=== PATIENT | female | born 1935 | race Caucasian/White ===

== ENCOUNTER → 2017-01-26 | Outpatient (CLI) | payer OTHER ==
[~2017-01-26] MED LIST: AGG PO; ATOR80TA PO; CALCTAB5 PO; CLON1TAB3 PO; CYAN10005 PO; DICL1GEL12 TOP; GLC850 PO; METO25TA3 PO; NTRGSL/4 UT; TRAM-10 PO
[2017-01-26 17:45] LABS: CHOLESTEROL/HDL RATIO 2.5
== END | disposition home or self-care (01) ==
LOC: C.LABPBG 11:39
PROVIDERS: ATTEND Internal Medicine Cardiovascular Disease
DX: E78.5 Hyperlipidemia, unspecified (principal)

== ENCOUNTER → 2017-02-27 | Outpatient (CLI) | payer OTHER ==
[2017-02-27 13:22] LABS: ESTIMATED AVERAGE GLUCOSE 154 mg/dl; HA1C FLAG Normal (Normal)
[2017-02-27 13:47] LABS: ALT/SGPT 32 U/L (12-78); BLOOD UREA NITROGEN 20 mg/dl (7-18); BUN/CREATININE RATIO 18.3 (10-20); CALCIUM 9.9 mg/dl (8.5-10.1); CARBON DIOXIDE 26 mmol/L (21-32); CHLORIDE 104 mmol/L (98-107); GLUCOSE 131 mg/dl (70-99); POTASSIUM 3.7 mmol/L (3.5-5.1); SODIUM 139 mmol/L (136-145)
[2017-02-27 13:57] LABS: ALB/GLOB RATIO 0.8 (0.9-2); ALKALINE PHOSPHATASE 86 U/L (45-117); AST/SGOT 23 U/L (15-37)
--- NOTE | 2017-03-06 07:19 | CODING QUERY MEDICAL NECESSITY ---
CQSUPPORTING DIAGNOSIS NEEDED A supporting diagnosis is required for the test/procedure performed on this patient in order for us to be reimbursed by the patient's insurance. Please provide a supporting diagnosis for the following test/procedure listed below next to the test name along with your signature. *If there is no additional diagnosis for this patient that would support the following test/procedure please document that below next to the test/procedure. Test(s)/Procedure(s) that require a supporting diagnosis: DOS 02/27/17 GLYCATED HEMOGLOBIN TEST Provider Signature: Date: Thank you Alyson Self Health Information Management Once completed, please kindly fax back to [phone] For questions please call [phone]
== END | disposition home or self-care (01) ==
LOC: C.LABPBG 09:08
PROVIDERS: ATTEND Internal Medicine
DX: E78.5 Hyperlipidemia, unspecified (principal); E11.9 Type 2 diabetes mellitus without complications

== ENCOUNTER → 2017-07-27 | Outpatient (CLI) | payer OTHER ==
--- NOTE | 2017-07-28 12:34 | MAMMOGRAPHY REPORT ---
BILATERAL DIGITAL SCREENING MAMMOGRAM WITH CAD: 07/27/2017 CLINICAL HISTORY: Routine screening. TECHNIQUE: Current study was also evaluated with a Computer Aided Detection (CAD) system. Bilateral CC and MLO views were obtained. COMPARISON: Comparison is made to exams dated: 06/23/2016 mammogram, 06/22/2015 mammogram, 06/20/2014 mamm ogram, 06/19/2013 mammogram, 06/18/2012 mammogram, and 06/15/2011 mammogram - [facility] er. BREAST COMPOSITION: The tissue of both breasts is heterogeneously dense, which may obscure small mas ses. FINDINGS: No suspicious masses, calcifications, or areas of architectural distortion are noted in ei ther breast. There has been no significant interval change compared to prior exams. Scattered bilater al benign-appearing calcifications are not significantly changed. IMPRESSION: ACR BI-RADS CATEGORY 2: BENIGN There is no mammographic evidence of malignancy. A 1 year screening mammogram is recommended. The pa tient will receive written notification of the results. Approximately 10% of breast cancers are not detected with mammography. A negative mammographic report should not delay biopsy if a clinically suggestive mass is present. Carla Rodriguez M.D. ah/:07/27/2017 16:55:37 Manager Academic: Kecia MURRAY(R)(M), [facility] letter sent: Normal 1/2 BI-RADS Code: ACR BI-RADS Category 2: Benign
== END | disposition home or self-care (01) ==
LOC: C.MAMM 16:18
PROVIDERS: ATTEND Internal Medicine
DX: Z12.31 Encounter for screening mammogram for malignant neoplasm of breast (principal)

== ENCOUNTER → 2017-09-04 | Outpatient (CLI) | payer OTHER ==
[2017-09-04 17:53] LABS: ALT/SGPT 32 U/L (12-78); AST/SGOT 21 U/L (15-37); BLOOD UREA NITROGEN 17 mg/dl (7-18); BUN/CREATININE RATIO 16.9 (10-20); CALCIUM 9.5 mg/dl (8.5-10.1); CARBON DIOXIDE 27 mmol/L (21-32); CHLORIDE 107 mmol/L (98-107); CREATININE 1.01 mg/dl (0.60-1.20); GLUCOSE 135 mg/dl (70-99); SODIUM 142 mmol/L (136-145)
[2017-09-04 17:55] LABS: ALB/GLOB RATIO 0.8 (0.9-2); ALKALINE PHOSPHATASE 75 U/L (45-117)
[2017-09-05 07:24] LABS: ESTIMATED AVERAGE GLUCOSE 143 mg/dl; HA1C FLAG Normal (Normal)
== END | disposition home or self-care (01) ==
LOC: C.LABPBG 13:57
PROVIDERS: ATTEND Internal Medicine
DX: E11.9 Type 2 diabetes mellitus without complications (principal); I25.10 Atherosclerotic heart disease of native coronary artery without angina pectoris; I10 Essential (primary) hypertension; E78.5 Hyperlipidemia, unspecified

== ENCOUNTER → 2017-10-20 | Outpatient (CLI) | payer OTHER ==
[2017-10-20 17:41] LABS: URINE APPEARANCE CLOUDY (CLEAR); URINE BILIRUBIN NEG (NEG); URINE COLOR YELLOW; URINE NITRITE POS (NEG); URINE SPECIFIC GRAVITY 1.026 (1.000-1.030); UROBILINOGEN NEG (NEG); ZZUR CULT IF INDIC CLEAN CATCH YES
[2017-10-20 17:42] LABS: MANUAL MICROSCOPIC REQUIRED? NO; REVIEW REQ? NO
== END | disposition home or self-care (01) ==
LOC: C.LABPBG 14:14
PROVIDERS: ATTEND Internal Medicine
DX: R39.9 Unspecified symptoms and signs involving the genitourinary system (principal)

== ENCOUNTER → 2018-01-23 | Outpatient (CLI) | payer OTHER ==
[2018-01-23 17:49] LABS: BASO % 0.4 %; BASO ABS # 0.03 K/uL (0-0.2); EOS % 3.5 %; EOS ABS # 0.25 K/uL (0-0.5); HEMATOCRIT 45.5 % (37-47); HEMOGLOBIN 14.9 g/dL (12.0-16.0); LYMPH % 35.5 %; LYMPH ABS # 2.51 K/uL (1.2-3.4); MEAN CELL VOLUME 97.2 fL (80-100); MEAN CORPUSCULAR HEMOGLOBIN 31.8 pg (25-34); MEAN CORPUSCULAR HGB CONC 32.7 g/dl (32-36); MEAN PLATELET VOLUME 10.5 fL (7.4-10.4); MONO % 7.1 %; NEUT % 53.5 %; NEUT ABS # 3.79 K/uL (1.4-6.5); PLATELET COUNT 269 K/uL (130-400); RED CELL DISTRIBUTION WIDTH SD 46.1 fL (36.4-46.3); WHITE BLOOD COUNT 7.08 K/uL (4.8-10.8)
[2018-01-23 18:23] LABS: ALT/SGPT 44 U/L (12-78); BLOOD UREA NITROGEN 18 mg/dl (7-18); CALCIUM 9.7 mg/dl (8.5-10.1); CARBON DIOXIDE 27 mmol/L (21-32); CHOLESTEROL 145 mg/dl (0-200); GLUCOSE 149 mg/dl (70-99); POTASSIUM 3.9 mmol/L (3.5-5.1); SODIUM 138 mmol/L (136-145)
[2018-01-23 18:26] LABS: ALKALINE PHOSPHATASE 80 U/L (45-117); AST/SGOT 27 U/L (15-37); LDL CHOLESTEROL CALCULATED 58 mg/dl; TOTAL PROTEIN 8.1 gm/dl (6.4-8.2)
[2018-01-24 06:22] LABS: HEMOGLOBIN A1C 6.9 % (4.5-5.6)
== END | disposition home or self-care (01) ==
LOC: C.LABPBG 11:45
PROVIDERS: ATTEND Internal Medicine Cardiovascular Disease
DX: E11.9 Type 2 diabetes mellitus without complications (principal); I25.10 Atherosclerotic heart disease of native coronary artery without angina pectoris; E78.5 Hyperlipidemia, unspecified; I48.0 Paroxysmal atrial fibrillation; I10 Essential (primary) hypertension; G89.4 Chronic pain syndrome

== ENCOUNTER 2025-02-06 12:33 | Inpatient (IN) ==
--- NOTE | 2025-02-06 12:40 | Emergency Department Note ---
Impression & Plan Complicated urinary tract infection, Dementia with behavioral disturbance ED Provider Note NAME: RENEE JONES AGE: 89 SEX: F : 1935 ARRIVES VIA: Ambulance INFORMANT: Patient, ED PROVIDER(S): Bhavesh Márquez MD CHIEF COMPLAINT: Altered mental status MEDICAL DECISION MAKING: Patient presents with the above although during assessment patient does not know why she is here and not that the patient is acutely confused but does not know why she was brought into the emergency department as the patient feels well and has no acute complaints. EMS did provide history to nursing who reported the patient seemed to be altered per family this morning recent UTI diagnosis although unsure as without the patient has been receiving adequate treatment. On exam patient has unremarkable exam findings is well-appearing. Patient may be a bit dry just based on some dry mucous membranes and was ordered IV fluids in addition to blood work urinalysis and CT head. Chest x-ray also performed. Patient's blood work shows a normal white count H&H and platelet count kidney function is unremarkable. BSG 211 nonfasting not DKA. Patient did have bouts of agitation. After further discussion with case management as the daughter had initially requested some in-home care daughter does not believe that she can take care for her in her current state at home. Patient was ordered 0.25 of IV Ativan. I did speak the on-call hospital service Dr. Fernandez and the patient was admitted to the medicine service. Discussion w/ other healthcare providers: None Prior /Outside records reviewed: I did review part of a primary care visit from January 20 from [facility]. Patient does have a history of dementia and auditory hallucinations. Patient with URI related symptoms COVID flu in office were negative. I did review part of a urine culture result which showed E. coli and group B strep. This is virtually pansensitive with the exception to quinolones. Differential diagnosis: Infection, dehydration, metabolic abnormality, hypo/hyperglycemia, electrolyte imbalance, anemia, UTI, pneumonia, thyroid dysfunction among others were considered. Diagnostics, as interpreted by me: ECG: Normal sinus rhythm, rate of 64, normal intervals, normal axis no ST elevations, T wave inversions in lead III and aVF. Cardiac monitoring: An order was placed for continuous cardiac monitoring. The monitor shows a rate of 75 with sinus rhythm. Patient was placed on pulse oximetry Medical decision rules: None Imaging studies: I informally interpreted the patient's chest x-ray does not show obvious pneumonia or pneumothorax with formal report to follow. HPI: Patient presents from home and states "I do not know why I am here" as she is feeling quite well. Patient denies any current head neck chest back or abdominal pain. No nausea or vomiting no chest pains or shortness of breath patient denies any falls or trauma. Additional history is obtained from EMS/nursing reports that family was concerned that she had a change in mental status this morning. They reported the patient was diagnosed with a UTI several days ago. Unclear as without the patient has been taking medications for treatment. Patient did tell nursing that she was taking medication for a "urinary issue." No reported falls or trauma. Patient does live with family. PAST MEDICAL HISTORY: See Below PAST SURGICAL HISTORY: See Below SOCIAL HISTORY: See Below HOME MEDICATIONS: See Below ALLERGIES: See Below VITALS: See Below PHYSICAL EXAMINATION: GENERAL: NAD, non-toxic. EYE EXAM: Normal conjunctiva. PERRL, no anisocoria and EOM's grossly intact w/o pain. OROPHARYNX: Dry mucus membranes, grossly normal dentition. NECK: Trachea midline, no stridor. Supple, no nuchal rigidity, no adenopathy, non-tender. No signs of meningismus. FROM of the neck with good chin to chest and neck extension. LUNGS: Clear to auscultation. Normal chest wall mechanics. HEART: NSR, no MRG. ABDOMEN: Abdomen soft, non-tender, no masses, no rebound or guarding. BACK: No CVA TTP. SKIN: No rashes and no bruising. UPPER EXTREMITIES: Upper extremities are grossly normal. LOWER EXTREMITIES: Grossly normal, no edema. NEURO EXAM: A&O x3, cranial nerves II-XII grossly intact, normal speech, moves all 4 extremities. Good [id number], no drift and no sensory deficits. Past Med/Surg History Problem List (Updated 02/06/25 @ 19:36 by Bhavesh Márquez MD) Dementia with behavioral disturbance (Acute) Complicated urinary tract infection (Acute) Altered mental status Urinary tract infection Aortic stenosis mild Vitamin D deficiency Dementia Seasonal allergies Depression Gait abnormality H/O: stroke Mild cognitive impairment Angina pectoris (Acute) Cerebral artery occlusion with cerebral infarction (Acute) Arthritis, multiple joint involvement (Chronic) Carotid artery stenosis (Chronic) Chronic pain syndrome (Chronic) Coronary artery arteriosclerosis (Chronic) Diabetes mellitus (Chronic) Hyperlipidemia (Chronic) HTN (hypertension) (Chronic) Late effects of cerebrovascular disease (Chronic) Lumbar spinal stenosis (Chronic) Obstructive sleep apnea (Chronic) Paroxysmal atrial fibrillation (Chronic) Past myocardial infarction (Chronic) Post laminectomy syndrome (Chronic) TIA (transient ischemic attack) (Chronic) Medical History Myocardial infarction Diverticulosis of colon Irritable bowel syndrome Surgical History H/O colonoscopy S/P lumbar laminectomy Family History Mother Diabetes Uterine cancer Ovarian cancer Hypertension Heart disease Sister Breast cancer Brother Myocardial infarction Father Stroke Denies family history of Prostate cancer Colorectal cancer Social History Smoking Status: Former smoker Second Hand Exposure: No; Do You Dip or Chew Tobacco: No; Hx Alcohol Use: No Hx Substance Use: No Preferred Language: Icelandic Communication Ability: Effective Visual Impairment: No Limitations Hearing Ability: Normal Endocrinology Physician Required: No Beliefs That Will Affect Care: None marital status: / Current Living Situation: Alone current occupational status: retired Feels Safe at Home: Yes Childhood Exposure to Second-Hand Smoke: Yes Diet: regular Diet Comment: regular caffeine: Yes (soda) during the past year weight has: remained stable Dental Care, Regularly: No Physical Activity Frequency: Does not Exercise Physical Activity Frequency Comment: due to physical condition Seatbelt Use: always Sunscreen Use: Yes Allergies Allergies Allergy/AdvReac Type Severity Reaction Status Date / Time niacin Allergy Intermediate RASH Verified 02/06/25 16:30 pravastatin Allergy Intermediate MYALGIA Verified 02/06/25 16:30 meloxicam Allergy Unknown swelling Verified 02/06/25 16:30 simvastatin Allergy Unknown MYALGIA Verified 02/06/25 16:30 escitalopram [From Lexapro] Allergy Unknown Verified 02/06/25 16:30 oxycodone Allergy Unknown Verified 02/06/25 16:30 clopidogrel [From Plavix] AdvReac Intermediate Unknown Verified 02/06/25 16:30 Home Meds Home Medications Medication Instructions Recorded Confirmed acetaminophen 500 mg tablet 500 mg PO DAILY PRN pain 07/18/19 02/06/25 blood sugar diagnostic (Alisonuch #10 ea 07/18/19 12/23/24 Ultra Blue Test Strip) lancets 33 gauge (Madhav Delica #100 ea 07/18/19 12/23/24 Lancets) risperidone 0.25 mg tablet 0.25 mg PO HS PRN Calm pt down 12/23/24 02/06/25 metoprolol succinate 50 mg 50 mg PO BID 02/06/25 02/06/25 tablet,extended release 24 hr rivaroxaban 20 mg tablet (Xarelto) 20 mg PO QAM 02/06/25 02/06/25 Previous Rx's Medication Instructions Recorded nitroglycerin 0.4 mg sublingual 0.4 mg sublingual Q5M #30 tabs 09/11/23 tablet atorvastatin 80 mg tablet 80 mg PO QPM #90 tabs 04/09/24 empagliflozin 25 mg tablet 25 mg PO DAILY #90 tabs 12/23/24 (Jardiance) cephalexin 500 mg capsule 500 mg PO BID 7 days #14 caps 02/04/25 Results & Data (ED) Vital Signs Vital Signs - 24 hr 02/06/25 12:45 02/06/25 13:31 02/06/25 13:45 Temperature 37 C Temperature Source Oral Pulse Rate 69 63 Pulse Rate [Apical] Pulse Rate from SpO2 Sensor 63 Respiratory Rate 20 21 Blood Pressure 131/67 145/78 H Blood Pressure [Right Arm] Blood Pressure Mean 88 93 Blood Pressure Mean [Right Arm] Pulse Oximetry 97 99 Oxygen Delivery Method Room Air Sepsis Recent Fever Within 48 Hours No Sepsis New/Unexplained Change in Mental Status No Sepsis Action Taken by Nursing No Action Required 02/06/25 13:50 02/06/25 15:00 Temperature Temperature Source Pulse Rate 80 Pulse Rate [Apical] 67 Pulse Rate from SpO2 Sensor Respiratory Rate 16 Blood Pressure Blood Pressure [Right Arm] 134/62 Blood Pressure Mean Blood Pressure Mean [Right Arm] 86 Pulse Oximetry 93 Oxygen Delivery Method Room Air Sepsis Recent Fever Within 48 Hours Sepsis New/Unexplained Change in Mental Status Sepsis Action Taken by Custodial Medications Current Medication List: was personally reviewed by me Laboratory Data Attestation: I reviewed the patient's lab results. 02/06/25 12:44 02/06/25 12:44 Lab Results 02/06/25 02/06/25 Range/Units 12:44 13:07 WBC 6.54 (4.8-10.8) K/ul RBC 4.62 (4.20-5.40) M/uL Hgb 14.2 (12.0-16.0) g/dl Hct 44.3 (37.0-47.0) % MCV 95.9 (80.0-100.0) fL MCH 30.7 (25.0-34.0) pg MCHC 32.1 (32.0-36.0) g/dL RDW Std Deviation 45.7 (36.4-46.3) fL RDW Coeff of Alfonso 12.8 (11.5-14.5) % Plt Count 341 (130-400) K/uL MPV 9.9 (9.4-12.4) fL Immature Gran % (Auto) 0.3 % Neut % (Auto) 59.8 % Lymph % (Auto) 27.8 % [place] % (Auto) 5.7 % Eos % (Auto) 5.2 % Baso % (Auto) 1.2 % Neut # (Auto) 3.91 (1.40-6.50) K/uL Lymph # (Auto) 1.82 (1.20-3.40) K/uL [place] # (Auto) 0.37 (0.11-0.59) K/uL Eos # (Auto) 0.34 (0.00-0.50) K/uL Baso # (Auto) 0.08 (0.00-0.20) K/uL Immature Gran # (Auto) 0.02 (0.01-0.20) K/uL Sodium 140 (136-145) mmol/L Potassium 3.7 (3.5-5.1) mmol/L Chloride 105 (98-107) mmol/L Carbon Dioxide 27 (21-32) mmol/L Anion Gap 8 (3-11) BUN 11 (6-23) mg/dl Creatinine 0.69 (0.6-1.2) mg/dl Est Cr Clr Drug Dosing 52.2 ml/min eGFR 83.94 BUN/Creatinine Ratio 15.9 (10-20) Glucose 211 H (70-99(Fasting)) mg/dl POC Glucose 180 H (70-99) mg/dl Calcium 9.4 (8.6-10.3) mg/dl Magnesium 1.7 (1.7-2.4) mg/dl Total Bilirubin 0.8 (0.2-1.0) mg/dl AST 35 (13-39) U/L ALT 36 (7-52) U/L Alkaline Phosphatase 96 (34-104) U/L Total Protein 7.6 (6.0-8.3) gm/dl Albumin 3.6 (3.4-5.0) gm/dl Globulin 4.0 (2.5-4.0) gm/dl Albumin/Globulin Ratio 0.9 (0.9-2) TSH 1.554 (0.300-4.500) uIu/ml Administered Medications Insulin Aspart (Insulin Aspart Per Unit Charge) 0 units SC ACHS SPENCER Stop: 03/08/25 17:44 Last Admin: 02/06/25 18:27 Dose: Not Given Documented By: LUCIA Rivaroxaban (Rivaroxaban 20 Mg Tab) 20 mg PO QDD SPENCER Stop: 03/08/25 17:59 Last Admin: 02/06/25 18:42 Dose: 20 mg Documented By: LUCIA Discontinued Medications Sodium Chloride (Nss) 500 mls @ 999 mls/hr IV .Q31M ONE Stop: 02/06/25 13:23 Last Infusion: 02/06/25 14:16 Dose: Infused Documented By: Admin: 02/06/25 13:30 Dose: 999 mls/hr Documented By: CHANNING Ceftriaxone Sodium (Rocephin) 2,000 mg in 50 mls @ 100 mls/hr IV NOW STA Stop: 02/06/25 13:25 Last Infusion: 02/06/25 14:16 Dose: Infused Documented By: Admin: 02/06/25 13:30 Dose: 100 mls/hr Documented By: CHANNING Lorazepam (Lorazepam 2 Mg/1 Ml Vial) 0.25 mg IV NOW STA Stop: 02/06/25 14:36 Last Admin: 02/06/25 14:52 Dose: 0.25 mg Documented By: CHANNING Imaging Data Radiologist's Impression: Chest X-Ray 02/06/25 12:53 XR chest 1V portable CLINICAL HISTORY: weakness COMPARISON STUDY: 08/23/2024 FINDINGS: Heart size and pulmonary vasculature are normal. Stable mildly hyperexpanded lungs. No effusion, consolidation, or pneumothorax. IMPRESSION: No acute findings. ACT 112: Negative or not required by law. Electronically signed by: Gerber Dowling M.D. 02/06/2025 1:[address] 02/06/25 12:53 CT OF THE HEAD WITHOUT CONTRAST CLINICAL HISTORY: Confusion. COMPARISON STUDY: MRI of the brain January 30, 2020. Head CT August 23, 2024. CT DOSE: 625.8 mGy.cm TECHNIQUE: Helical axial images of the head were obtained without IV contrast. Automated exposure control was utilized for the study. A dose lowering technique was utilized adhering to the principles of ALARA. FINDINGS: No acute intracranial hemorrhage, midline shift or mass effect is present. Ventricular system is stable. Basal cisterns are patent. An old infarct within the left occipital lobe is unchanged. There are no findings to suggest acute dural sinus thrombosis or acute territorial infarct. There are no calvarial fractures. Right sphenoid sinus is largely opacified. There is a small air-fluid level within the left sphenoid sinus. IMPRESSION: 1. No acute intracranial findings. No change in appearance of the brain. 2. Sphenoid sinus opacification, as above. ACT 112: Negative or not required by law. Electronically signed by: Bill Landry M.D. 02/06/2025 1:56 PM Discharge Plan Visit Data Chief Complaint: Altered Mental Status ED Provider: Bhavesh Máruqez Discharge Problem: Complicated urinary tract infection, Dementia with behavioral disturbance Patient Disposition: Admitted As Inpatient Discharge Instructions Interventions: ED Discharge Assessment Last Done: 02/06/25 17:04
[2025-02-06 13:29] LABS: Basophils # (auto) 0.08 K/uL (0.00-0.20); Basophils % (auto) 1.2 %; Eosinophils # (auto) 0.34 K/uL (0.00-0.50); Eosinophils % (auto) 5.2 %; Hematocrit (blood only) 44.3 % (37.0-47.0); Hemoglobin 14.2 g/dl (12.0-16.0); Immature Granulocytes # (auto) 0.02 K/uL (0.01-0.20); Immature Granulocytes % (auto) 0.3 %; Lymphocytes # (auto) 1.82 K/uL (1.20-3.40); Lymphocytes % (auto) 27.8 %; Mean Corpuscular Hemoglobin 30.7 pg (25.0-34.0); Mean Corpuscular Hgb Conc 32.1 g/dL (32.0-36.0); Mean Corpuscular Volume 95.9 fL (80.0-100.0); Mean Platelet Volume 9.9 fL (9.4-12.4); Monocytes # (auto) 0.37 K/uL (0.11-0.59); Monocytes % (auto) 5.7 %; Neutrophils # (auto) 3.91 K/uL (1.40-6.50); Neutrophils % (auto) 59.8 %; Platelet Count 341 K/uL (130-400); RDW Coefficient of Variation 12.8 % (11.5-14.5); RDW Standard Deviation 45.7 fL (36.4-46.3); Red Blood Count 4.62 M/uL (4.20-5.40); White Blood Count 6.54 K/ul (4.8-10.8)
[2025-02-06 13:30] LABS: Albumin Globulin Ratio 0.9 (0.9-2); Albumin Level 3.6 gm/dl (3.4-5.0); BUN Creatinine Ratio 15.9 (10-20); Bilirubin,Total 0.8 mg/dl (0.2-1.0); Calcium 9.4 mg/dl (8.6-10.3); Creatinine Clr Calc Pharmacy 52.2 ml/min; Magnesium 1.7 mg/dl (1.7-2.4); Potassium 3.7 mmol/L (3.5-5.1); Total Protein 7.6 gm/dl (6.0-8.3)
[2025-02-06] MEDS: SODIUM CHLORIDE 0.9% 500 ML IV ONE (13:30)
[2025-02-06] MEDS: cefTRIAXone SODIUM 2,000 MG/50 ML BAG IV STA (13:30)
--- NOTE | 2025-02-06 13:30 | XRay Report ---
XR chest 1V portable CLINICAL HISTORY: weakness COMPARISON STUDY: 08/23/2024 FINDINGS: Heart size and pulmonary vasculature are normal. Stable mildly hyperexpanded lungs. No effu trung, consolidation, or pneumothorax. IMPRESSION: No acute findings. ACT 112: Negative or not required by law. Electronically signed by: Gerber Dowling M.D. 02/06/2025 1:28 PM
[2025-02-06 13:44] LABS: Thyroid Stimulating Hormone 1.554 uIu/ml (0.300-4.500)
--- NOTE | 2025-02-06 13:57 | CT Scan Report ---
CT OF THE HEAD WITHOUT CONTRAST CLINICAL HISTORY: Confusion. COMPARISON STUDY: MRI of the brain January 30, 2020. Head CT August 23, 2024. CT DOSE: 625.8 mGy.cm TECHNIQUE: Helical axial images of the head were obtained without IV contrast. Automated exposure con trol was utilized for the study. A dose lowering technique was utilized adhering to the principles o f ALARA. FINDINGS: No acute intracranial hemorrhage, midline shift or mass effect is present. Ventricular syst em is stable. Basal cisterns are patent. An old infarct within the left occipital lobe is unchanged. There are no findings to suggest acute dural sinus thrombosis or acute territorial infarct. There are no calvarial fractures. Right sphenoid sinus is largely opacified. There is a small air-fluid level within the left sphenoid sinus. IMPRESSION: 1. No acute intracranial findings. No change in appearance of the brain. 2. Sphenoid sinus opacification, as above. ACT 112: Negative or not required by law. Electronically signed by: Bill Landry M.D. 02/06/2025 1:56 PM
[2025-02-06] MEDS: LORazepam 2 MG/1 ML VIAL IV STA (14:52)
[2025-02-06] MEDS ORDERED: ACETAMINOPHEN 325 MG TAB PO PRN (15:27)
--- NOTE | 2025-02-06 15:42 | History & Physical Report ---
Date of Service February 06, 2025 Assessment & Plan (1) Urinary tract infection: (2) Dementia: (3) Diabetes mellitus: (4) Altered mental status: Plan This is an 89 year old female with past medical history of carotid artery stenosis, HTN, HLD, TIA, Dementia, aortic stenosis, depression who presented to the ED on 02/06 with altered mental status. #Altered Mental status/UTI Patient w/ ongoing UTI issues from 01/22 outpatient. Recently on Keflex for ~ 3 days prior to admission. Head CT and CXR negative CBC/BMP stable, TSH WNL Repeat UC if able -> patient difficulty w/ complying to getting a sample. s/p IV Rocephin in ED --> continue inpatient. #Dementia Progressive decline over last 4 years but worsened a few weeks ago in the event of an infection. Continue to monitor for signs of improvement. #Diabetes On Jardiance outpatient, Last A1c 12/2024 @ 7.2 SSI on admission. Tailor as needed Consulted pharmacy for aide in glycemic management. Chronic conditions: A fib: Metoprolol and Rivaroxaban HLD: statin DVT prophylaxis: home Rivaroxaban Code: DNR/DNI Case discussed w/ Dr. Fernandez at time of admission. Updated daughter at bedside. History of Present Illness Primary Care Provider: Lia Ayala DO This is an 89 year old female with past medical history of carotid artery stenosis, HTN, HLD, TIA, Dementia, aortic stenosis, depression who presented to the ED on 02/06 with altered mental status. patient seen and examined this afternoon w/ daughter present. Upon entering the room, patient was talking to herself with her head over her blanket. No history able to be obtained from patient. Patient's daughter was primary historian. Daughter reports over the last 4 years patient has had a cognitive decline progressively. She reports that since 01/22 patient has been having a UTI & altered mental status that has been worse from her baseline. Daughter reports patient has random complaints such as she "broke her arm" or her "private area is scarred". Daughter reports these are not accurate complaints. She has had about 3 days of Keflex with no improvement in her symptoms. Code discussion took place with daughter and the patient is a DNR/DNI. While in the ED, patient had a negative Head CT and negative CXR. CBC and BMP are stable. She was given 1 dose of IV Rocephin. Recent Urine culture from 02/03 was + for E coli and group B strep. Allergies Allergy/AdvReac Type Severity Reaction Status Date / Time niacin Allergy Intermediate RASH Verified 02/10/25 11:01 pravastatin Allergy Intermediate MYALGIA Verified 02/10/25 11:01 meloxicam Allergy Unknown swelling Verified 02/10/25 11:01 simvastatin Allergy Unknown MYALGIA Verified 02/10/25 11:01 escitalopram [From Lexapro] Allergy Unknown Verified 02/10/25 11:01 oxycodone Allergy Unknown Verified 02/10/25 11:01 clopidogrel [From Plavix] AdvReac Intermediate Unknown Verified 02/10/25 11:01 Home Medications Medication Instructions Recorded Confirmed Type acetaminophen 500 mg tablet 500 mg PO DAILY PRN pain 07/18/19 02/10/25 History nitroglycerin 0.4 mg sublingual 0.4 mg sublingual Q5M #30 tabs 09/11/23 02/10/25 Rx tablet atorvastatin 80 mg tablet 80 mg PO QPM #90 tabs 04/09/24 02/10/25 Rx empagliflozin 25 mg tablet 25 mg PO DAILY #90 tabs 12/23/24 02/10/25 Rx (Jardiance) risperidone 0.25 mg tablet 0.25 mg PO HS PRN Calm pt down 12/23/24 02/10/25 History metoprolol succinate 50 mg 50 mg PO BID 02/06/25 02/10/25 History tablet,extended release 24 hr rivaroxaban 20 mg tablet (Xarelto) 20 mg PO QAM 02/06/25 02/10/25 History cholecalciferol (vitamin D3) 50 50 mcg PO DAILY 02/10/25 02/10/25 History mcg (2,000 unit) capsule Past Med/Surg History Problem List (Updated 02/06/25 @ 19:36 by Bhavesh Márquez MD) Dementia with behavioral disturbance (Acute) Complicated urinary tract infection (Acute) Altered mental status Urinary tract infection Aortic stenosis mild Vitamin D deficiency Dementia Seasonal allergies Depression Gait abnormality H/O: stroke Mild cognitive impairment Angina pectoris (Acute) Cerebral artery occlusion with cerebral infarction (Acute) Arthritis, multiple joint involvement (Chronic) Carotid artery stenosis (Chronic) Chronic pain syndrome (Chronic) Coronary artery arteriosclerosis (Chronic) Diabetes mellitus (Chronic) Hyperlipidemia (Chronic) HTN (hypertension) (Chronic) Late effects of cerebrovascular disease (Chronic) Lumbar spinal stenosis (Chronic) Obstructive sleep apnea (Chronic) Paroxysmal atrial fibrillation (Chronic) Past myocardial infarction (Chronic) Post laminectomy syndrome (Chronic) TIA (transient ischemic attack) (Chronic) Medical History Myocardial infarction Diverticulosis of colon Irritable bowel syndrome Surgical History H/O colonoscopy S/P lumbar laminectomy Family History Mother Diabetes Uterine cancer Ovarian cancer Hypertension Heart disease Sister Breast cancer Brother Myocardial infarction Father Stroke Denies family history of Prostate cancer Colorectal cancer Social History Smoking Status: Former smoker Second Hand Exposure: No; Do You Dip or Chew Tobacco: No; Hx Alcohol Use: No Hx Substance Use: No Preferred Language: Ukrainian Communication Ability: Impaired Visual Impairment: No Limitations Hearing Ability: Normal Title Insurance Sales Representative Required: No Beliefs That Will Affect Care: None marital status: / Current Living Situation: Alone current occupational status: retired Feels Safe at Home: Declines to Answer (SPOKE WITH DAUGHTER ONLY - PT HAS DEMENTIA) Childhood Exposure to Second-Hand Smoke: Yes Diet: regular Diet Comment: regular caffeine: Yes (soda) during the past year weight has: remained stable Dental Care, Regularly: No Physical Activity Frequency: Does not Exercise Physical Activity Frequency Comment: due to physical condition Seatbelt Use: always Sunscreen Use: Yes Assistive Devices: Cane and Walker Physical Exam Constitutional: + disheveled no distress Eyes: PERRL, conjunctivae normal, anicteric sclerae Respiratory: normal respiratory effort, lungs clear to auscultation Cardiovascular: +murmur, irregular. No LE edema Gastrointestinal (Abdomen): +tenderness to suprapubic region Psychiatric: confused, pleasant. Results & Data Results & Data Vital Signs (Past 12 Hours) Vital Signs Temp Pulse Pulse Resp BP BP Pulse Ox 02/06/25 15:00 67 16 134/62 93 02/06/25 13:50 80 02/06/25 13:45 63 21 99 02/06/25 13:31 145/78 H 02/06/25 12:45 37 C 69 20 131/67 97 O2 Del Method 02/06/25 15:00 Room Air 02/06/25 13:50 02/06/25 13:45 02/06/25 13:31 02/06/25 12:45 Room Air Supervising Physician Co-Signing Physician Notes During face to face encounter, I obtained a history physical examination, discu ssed plan of carewith patient. I discussed plan of care with KELLEE Evans. I reviewed above note and agree with it except for the following: Patient admitted for delirum and dementia. Concern that this is secondary to a UTI. Placed on rocephin PG Care Time/CCT Total # of Minutes Spent Total Time Spent with Patient: Total time spent is greater than 50% in coordination of care (as documented) at patient's floor/unit and/or counseling patient: Coding Level of Care Code 92011 INT INP/OBS CARE 3/75MIN Diagnoses Urinary tract infection N39.0 Dementia F03.90 Diabetes mellitus E11.9 Altered mental status R41.82
[2025-02-06] MEDS ORDERED: PHARMACY GLYCEMIC MGMT CONSULT PRN (17:31)
[2025-02-06] MEDS ORDERED: risperiDONE 0.25 MG TAB PO PRN (17:31)
--- NOTE | 2025-02-06 17:52 | Electrocardiogram Report ---
Test Reason : Blood Pressure : */* mmHG Vent. Rate : 64 BPM Atrial Rate : 64 BPM P-R Int : 184 ms QRS Dur : 92 ms QT Int : 408 ms P-R-T Axes : 75 53 14 degrees QTcB Int : 420 ms Normal sinus rhythm Normal ECG When compared with ECG of 23-Aug-2024 18:55, No significant change was found Confirmed by Ariel Mooney ([id number]) on 02/06/2025 5:51:50 PM Referred By: REFERRED SELF Confirmed By: Ariel Mooney
[2025-02-06] MEDS: INSULIN ASPART PER UNIT CHARGE SC SCH (18:27)
[2025-02-06] MEDS: RIVAROXABAN 20 MG TAB PO SCH (18:42)
[2025-02-06] MEDS: METOPROLOL SUCC 50MG EXT REL TAB PO SCH (21:50)
[2025-02-06] MEDS: ATORVASTATIN 40 MG TAB PO SCH (21:50)
[2025-02-07 06:11] LABS: Appearance Urine Clear (Clear); Bilirubin Urine Negative (Negative); Blood Urine Negative (Negative); Color Urine Yellow; Glucose Urine UA 3+ (Negative); Ketones Urine Negative (Negative); Leukocyte Esterase Urine Negative (Negative); Nitrite Urine Negative (Negative); Protein Urine Negative (Negative); Specific Gravity Urine 1.034 (1.000-1.030); Urobilinogen Urine Negative (Negative); pH Urine 6.5 (4.5-7.5)
[2025-02-07 08:09] LABS: Hematocrit (blood only) 37.8 % (37.0-47.0); Hemoglobin 12.2 g/dl (12.0-16.0); Mean Corpuscular Hemoglobin 31.1 pg (25.0-34.0); Mean Corpuscular Hgb Conc 32.3 g/dL (32.0-36.0); Mean Corpuscular Volume 96.4 fL (80.0-100.0); Mean Platelet Volume 10.2 fL (9.4-12.4); Platelet Count 308 K/uL (130-400); RDW Coefficient of Variation 13.3 % (11.5-14.5); RDW Standard Deviation 47.4 fL (36.4-46.3); Red Blood Count 3.92 M/uL (4.20-5.40); White Blood Count 6.86 K/ul (4.8-10.8)
[2025-02-07 08:23] LABS: BUN Creatinine Ratio 17.6 (10-20); Calcium 8.6 mg/dl (8.6-10.3); Potassium 3.9 mmol/L (3.5-5.1)
--- NOTE | 2025-02-07 10:36 | Pharmacy Report ---
Pharmacy Glycemic Short Note 2 - Date of Service February 07, 2025 - Glycemic Short BSG Results (Last 24 hours): 02/06/25 02/06/25 02/06/25 12:44 13:07 21:06 Glucose 211 H POC Glucose 180 H 146 H 02/07/25 02/07/25 07:27 07:56 Glucose 133 H POC Glucose 121 H OUTPATIENT ANTIDIABETIC REGIMEN: * empagliflozin 25mg PO daily HbA1C: 7.2% (12/23/24) ASSESSMENT: * Pt is an 89 YOF with a history of DM on empagliflozin at home admitted with a UTI and AMS. Pharmacy consulted to assist with inpatient glycemic management. * BSGs [phone]/dL since admission. Received only 3 units of bolus insulin this AM. * Tolerating diet, receiving IV ceftriaxone. * Will hold basal. Agree with Novolog ACHS mild-moderate scale. PLAN FOR INPATIENT GLYCEMIC CONTROL: * Hold outpatient oral diabetes medications * Basal insulin * hold * Bolus insulin * NovoLog per scale ACHS or Q6hrs while NPO * Goal Range: Low 120 mg/dL - High 150 mg/dL * Correction Factor: 40 mg/dL/unit * Nutritional / Prandial insulin per carb ratio of 1 unit per 20 grams CHO consumed
[2025-02-07] MEDS: cefTRIAXone SODIUM 2,000 MG/50 ML BAG IV SCH (13:21)
--- NOTE | 2025-02-07 15:33 | Hospitalist Progress Note ---
Date of Service February 07, 2025 Assessment & Plan (1) Urinary tract infection: (2) Dementia: (3) Diabetes mellitus: (4) Altered mental status: Plan This is an 89 year old female with past medical history of carotid artery stenosis, HTN, HLD, TIA, Dementia, aortic stenosis, depression who presented to the ED on 02/06 with altered mental status. #Altered Mental status/UTI Patient w/ ongoing UTI issues from 01/22 outpatient. Recently on Keflex for ~ 3 days prior to admission. Head CT and CXR negative CBC/BMP stable, TSH WNL Urinalysis negative, recommend obtain UC Will plan to treat with Rocephin x 3 doses for uncomplicated UTI (Last dose 02/08) #Dementia Progressive decline over last 4 years but worsened a few weeks ago in the event of an infection. Continue to monitor for signs of improvement. PT/OT consulted --> PT recommending rehab upon discharge. #Diabetes On Jardiance outpatient, Last A1c 12/2024 @ 7.2 SSI on admission. Tailor as needed Consulted pharmacy for aide in glycemic management. Chronic conditions: A fib: Metoprolol and Rivaroxaban HLD: statin DVT prophylaxis: home Rivaroxaban Code: DNR/DNI CM to aide w/ discharge planning, discussion of home health vs rehab placement 02/07. Admission and Anticipated Discharge Date Admission Date: February 06, 2025 Subjective Patient seen and examined this morning. Patient confused but alert at time of encounter. She reports she is feeling better today. Physical Exam Constitutional: WD/WN, vitals as above Eyes: PERRL, conjunctivae normal, anicteric sclerae Respiratory: breathing unlabored Cardiovascular: well perfused Gastrointestinal (Abdomen): +BS, no abdominal tenderness to palpatio n Psychiatric: pleasant, confused Results & Data Results & Data Vital Signs (Past 12 Hours) Vital Signs Temp Pulse Resp BP Pulse Ox O2 Del Method 02/07/25 15:03 36.6 C 63 20 110/62 94 Room Air 02/07/25 08:06 36.5 C 58 L 18 110/61 94 Room Air PG Care Time/CCT Total # of Minutes Spent Total Time Spent with Patient: Total time spent is greater than 50% in coordination of care (as documented) at patient's floor/unit and/or counseling patient: Coding Level of Care Code 46358 SUB INP/OBS CARE 2/35MIN Diagnoses Urinary tract infection N39.0 Dementia F03.90 Diabetes mellitus E11.9 Altered mental status R41.82
--- NOTE | 2025-02-08 13:31 | Hospitalist Progress Note ---
Date of Service February 08, 2025 Assessment & Plan (1) Urinary tract infection: (2) Dementia: (3) Diabetes mellitus: (4) Altered mental status: Plan This is an 89 year old female with past medical history of carotid artery stenosis, HTN, HLD, TIA, Dementia, aortic stenosis, depression who presented to the ED on 02/06 with altered mental status. #Altered Mental status/UTI Patient w/ ongoing UTI issues from 01/22 outpatient. Recently on Keflex for ~ 3 days prior to admission. Head CT and CXR negative CBC/BMP stable, TSH WNL Urinalysis negative, UC prelim negative Will plan to treat with Rocephin x 3 doses for uncomplicated UTI (Last dose 02/08) #Dementia Progressive decline over last 4 years but worsened a few weeks ago in the event of an infection. Continue to monitor for signs of improvement. PT/OT consulted --> PT recommending rehab upon discharge. #Diabetes On Jardiance outpatient, Last A1c 12/2024 @ 7.2 SSI on admission. Tailor as needed Consulted pharmacy for aide in glycemic management. Chronic conditions: A fib: Metoprolol and Rivaroxaban HLD: statin DVT prophylaxis: home Rivaroxaban Code: DNR/DNI Discussed w/ patient's daughter 02/08 -> daughter agreeable to home health given that patient walked 175 ft w/ rolling walker. Daughter states they have a walker at home already. She was agreeable for patient to be discharged 02/09 in the AM. Updated CM w/ discharge planning and they are to make home health referrals upon discharge. Admission and Anticipated Discharge Date Admission Date: February 06, 2025 Subjective Patient seen and examined this morning. Patient reports she feels well today and better than yesterday. She was pleasant at time of encounter. Physical Exam Constitutional: WD/WN, vitals as above Eyes: PERRL, conjunctivae normal, anicteric sclerae Respiratory: breathing unlabored Cardiovascular: well perfused Psychiatric: pleasant Results & Data Results & Data Vital Signs (Past 12 Hours) Vital Signs Temp Pulse Resp BP Pulse Ox O2 Del Method 02/08/25 07:49 36.2 C L 62 17 127/68 95 Room Air PG Care Time/CCT Total # of Minutes Spent Total Time Spent with Patient: Total time spent is greater than 50% in coordination of care (as documented) at patient's floor/unit and/or counseling patient: Coding Level of Care Code 91972 SUB INP/OBS CARE 2MIN Diagnoses Urinary tract infection N39.0 Dementia F03.90 Diabetes mellitus E11.9 Altered mental status R41.82
[2025-02-08 14:57] VITALS: RESP 16
[2025-02-09 07:10] VITALS: BP 119/69; PULSE 61; TEMP 97.3; O2SAT 94
--- NOTE | 2025-02-09 08:55 | Discharge Summary ---
Discharge Summary Date of Service February 09, 2025 Principal Dx & Hospital Course #1 = Principal Diagnosis (1) Urinary tract infection: (2) Dementia: (3) Diabetes mellitus: (4) Altered mental status: Plan This is an 89 year old female with past medical history of carotid artery stenosis, HTN, HLD, TIA, Dementia, aortic stenosis, depression who presented to the ED on 02/06 with altered mental status. #Altered Mental status/UTI Patient w/ ongoing UTI issues from 01/22 outpatient. Recently on Keflex for ~ 3 days prior to admission. Head CT and CXR negative CBC/BMP stable, TSH WNL Urinalysis negative, UC final negative. s/p 3 doses IV Rocephin to treat prophylactically for uncomplicated UTI, mental status did improve after treatment, unclear as to why given culture was negative. #Dementia Progressive decline over last 4 years but worsened a few weeks ago in the event of an infection. Continue to monitor for signs of improvement. PT/OT consulted --> PT recommending rehab upon discharge #Diabetes On Jardiance outpatient, Last A1c 12/2024 @ 7.2 resume PO medications on discharge. Chronic conditions: A fib: Metoprolol and Rivaroxaban HLD: statin Discussed w/ patient's daughter 02/08 -> daughter agreeable to home health given that patient walked 175 ft w/ rolling walker. Home health referral sent upon discharge. New script for walker updated. Updated daughter w/ discharge 02/09. Discussed w/ CM 02/09. Admission HPI Per Admitting Provider This is an 89 year old female with past medical history of carotid artery stenosis, HTN, HLD, TIA, Dementia, aortic stenosis, depression who presented to the ED on 02/06 with altered mental status. patient seen and examined this afternoon w/ daughter present. Upon entering the room, patient was talking to herself with her head over her blanket. No history able to be obtained from patient. Patient's daughter was primary historian. Daughter reports over the last 4 years patient has had a cognitive decline progressively. She reports that since 01/22 patient has been having a UTI & al tered mental status that has been worse from her baseline. Daughter reports patient has random complaints such as she "broke her arm" or her "private area is scarred". Daughter reports these are not accurate complaints. She has had about 3 days of Keflex with no improvement in her symptoms. Code discussion took place with daughter and the patient is a DNR/DNI. While in the ED, patient had a negative Head CT and negative CXR. CBC and BMP are stable. She was given 1 dose of IV Rocephin. Recent Urine culture from 02/03 was + for E coli and group B strep. Discharge Exam Constitutional WD/WN, vitals as above Eyes PERRL, conjunctivae normal, anicteric sclerae Respiratory breathing unlabored Cardiovascular well perfused Discharge Plan Discharge Items Patient Disposition: Home - Home Health Services Reason For Visit: AMS Discharge Diagnosis: Altered Mental Status Activity: Resume your previous activity Non-emergency contact: Primary Care Provider Call non-emergency contact if: you have any medication questions and your symptoms worsen Follow-up/Referrals: Lia Ayala DO [Primary Care Provider] - Diet: Regular Addtl Attending Provider Instructions: Ms. Moore, You were recently in the hospital due to worsened confusion. You were found to be dehydrated and you were also treated for a UTI. Your cognitive status has improved. Please resume the remainder of your outpatient medications. Home health referral has been made for you on discharge, they will be in touch to set this up. Please use a rolling walker at home instead of your cane as during your physical therapy evaluation, you were found to walk much better with the walker. Please follow up with your PCP within 1-2 weeks of discharge. If you develop any worsening confusion, fever, chills, chest pain, shortness of breath please report back to the ER for further care. Sincerely, Marleen Evans PA-C Pending Studies at Discharge: No Stand-Alone Forms: My [facility], Smoking Cessation Medications and DC Order Prescriptions: Continued atorvastatin 80 mg tablet 80 mg PO QPM Qty: 90 3RF acetaminophen 500 mg tablet 500 mg PO DAILY PRN (Reason: pain) risperidone 0.25 mg tablet 0.25 mg PO HS PRN (Reason: Calm pt down ) Jardiance 25 mg tablet 25 mg PO DAILY Qty: 90 1RF nitroglycerin 0.4 mg tablet, sublingual 0.4 mg SL Q5M Qty: 30 1RF metoprolol succinate 50 mg tablet extended release 24 hr 50 mg PO BID Rx Instructions: TAKE ONE TABLET BY MOUTH TWICE DAILY Xarelto 20 mg tablet 20 mg PO QAM Rx Instructions: Per caregiver this is supposed to be taken in the evening, but IF the patient will not fight in the morning she will give it them. Pt last had medication on the morning of 02/06/25 Discontinued cephalexin 500 mg capsule 500 mg PO BID 7 Days Qty: 14 0RF Rx Instructions: Start Date 02/04/25 x7 day supply No Action (DME) lancets [OneTouch Delica Lancets] 33 gauge misc See Dose Instructions .ROUTE .MEDSUPPLY Qty: 100 Rx Instructions: As directed (DME) OneTouch Ultra Blue Test Strip strip See Dose Instructions .ROUTE .MEDSUPPLY Qty: 10 Rx Instructions: As directed Discharge Orders: Discharge Order (Routine); Ordered 02/09/25 Ordered By: Marleen Evans Admission Data Admit Date/Time: 02/06/25 15:27 Attending Provider: Butch Fernandez Admit Provider: Butch Fernandez Primary Care Provider: Lia Ayala Other Providers: Butch Fernandez; Marty Guthrie [facility] Other Interventions: Discharge Summary Assessment (RN) Last Done: 02/09/25 09:40 Hospital Stay Data Consultations 02/06/25 14:43 ED Decision to Admit Stat Diagnostic Imagining Performed 02/06/25 12:53 CT head/brain wo con Stat Pending Results Patient Have Any Pending Studies at Discharge: No Discharge Instructions Given to Patient (Per Discharging Provider) Ms. Moore, You were recently in the hospital due to worsened confusion. You were found to be dehydrated and you were also treated for a UTI. Your cognitive status has improved. Please resume the remainder of your outpatient medications. Home health referral has been made for you on discharge, they will be in touch to set this up. Please use a rolling walker at home instead of your cane as during your physical therapy evaluation, you were found to walk much better with the walker. Please follow up with your PCP within 1-2 weeks of discharge. If you develop any worsening confusion, fever, chills, chest pain, shortness of breath please report back to the ER for further care. Sincerely, Marleen Evans PA-C Total Time Total Time Spent Total Time Spent (In Minutes): 50 Total Time Includes: Examination of the Patient, Discharge Planning, Medication Reconciliation and Communication With Other Providers Coding Level of Care Code 21180 INP/OBS DISCH >30 MIN Diagnoses Urinary tract infection N39.0 Dementia F03.90 Diabetes mellitus E11.9 Altered mental status R41.82
== END 2025-02-09 10:20 | disposition home health service (06) | DRG 689 ==
LOC: ED 12:33 → 3N 15:27
DX: E78.5 Hyperlipidemia, unspecified; Z87.891 Personal history of nicotine dependence; Z79.01 Long term (current) use of anticoagulants; Z88.8 Allergy status to other drugs, medicaments and biological substances; I25.2 Old myocardial infarction; Z87.440 Personal history of urinary (tract) infections; I10 Essential (primary) hypertension; Z79.84 Long term (current) use of oral hypoglycemic drugs; N39.0 Urinary tract infection, site not specified; Z66 Do not resuscitate; Z86.73 Personal history of transient ischemic attack (TIA), and cerebral infarction without residual deficits; F03.918 Unspecified dementia, unspecified severity, with other behavioral disturbance; I48.91 Unspecified atrial fibrillation; Z79.899 Other long term (current) drug therapy; G93.41 Metabolic encephalopathy